=== PATIENT | male | born 2000 | race Caucasian/White ===

== ENCOUNTER 2021-11-15 11:33 | Emergency (ER) | payer OTHER, SELFPAY ==
[~2021-11-15] VITALS: Ht 188 cm; Wt 75.0 kg
[2021-11-15] MEDS ORDERED: LIDOCAINE 1% MDV 20ML VIAL SC ONE (12:25)
[2021-11-15] MEDS ORDERED: NS 1,000 ML IV ONE (13:45)
[2021-11-15 13:51] LABS: BASO # 0.1 10^3/uL (0.0-0.2); BASO % 0.5 % (0.0-1.0); EOS # 0.1 10^3/uL (0.0-0.5); EOS % 0.6 % (0.0-3.0); HEMATOCRIT 45.4 % (42.0-52.0); LYMPH # 0.8 10^3/uL (1.5-5.0); LYMPH % 7.2 % (24.0-44.0); MEAN CORPUSCULAR HEMOGLOBIN 28.4 pg (27.0-33.0); MEAN CORPUSCULAR VOLUME 85.8 fl (80.0-96.0); MONO # 0.5 10^3/uL (0.0-0.8); MONO % 4.7 % (2.0-8.0); NEUTROPHILS # 9.2 10^3/uL (1.5-8.5); NEUTROPHILS % 86.6 % (36.0-66.0); PLATELET COUNT, AUTOMATED 174 10^3/uL (150-450); RED BLOOD COUNT 5.29 10^6/uL (4.30-6.10); WHITE BLOOD COUNT 10.6 10^3/uL (4.0-10.0)
[2021-11-15 14:24] LABS: BLOOD UREA NITROGEN 19 MG/DL (7-18); CALCIUM LEVEL 9.4 MG/DL (8.5-10.1); CARBON DIOXIDE LEVEL 25 MEQ/L (21-32); CHLORIDE LEVEL 105 MEQ/L (98-107); CREATININE FOR GFR 1.07 MG/DL (0.70-1.30); FREE T4 1.15 NG/DL (0.76-1.46); GLOMERULAR FILTRATION RATE > 60.0 (>60); GLUCOSE, FASTING 103 MG/DL (70-100); POTASSIUM SERUM 4.3 MEQ/L (3.5-5.1); SODIUM LEVEL 136 MEQ/L (136-145); THYROID STIMULATING HORMONE 0.727 uIU/ML (0.358-3.740)
[2021-11-15 14:48] VITALS: BP 119/56
== END 2021-11-15 14:54 | disposition home or self-care (01) ==
LOC: M ED 11:33 → EDBD 11:33 → M ED 14:54
DX: R55 Syncope and collapse (principal); S01.81XA Laceration without foreign body of other part of head, initial encounter; R00.1 Bradycardia, unspecified; W22.8XXA Striking against or struck by other objects, initial encounter

== ENCOUNTER 2025-02-16 12:46 | Emergency (ER) | payer OTHER, SELFPAY ==
[~2025-02-16] VITALS: Ht 185.4 cm; Wt 84.5 kg
[2025-02-16 13:30] LABS: BASO # 0.1 10^3/uL (0.0-0.2); BASO % 0.8 % (0.0-1.0); EOS # 0.1 10^3/uL (0.0-0.5); EOS % 1.7 % (0.0-3.0); LYMPH # 1.1 10^3/uL (1.5-5.0); LYMPH % 17.0 % (24.0-44.0); MONO # 0.3 10^3/uL (0.0-0.8); MONO % 4.9 % (2.0-8.0); NEUTROPHILS # 4.7 10^3/uL (1.5-8.5); NEUTROPHILS % 75.3 % (36.0-66.0); PLATELET COUNT, AUTOMATED 159 10^3/uL (150-450)
[2025-02-16 14:01] LABS: CALCIUM LEVEL 9.0 MG/DL (8.5-10.1); CARBON DIOXIDE LEVEL 29 MMOL/L (20-31); CHLORIDE LEVEL 102 MMOL/L (98-107); CREATININE FOR GFR 1.07 MG/DL (0.70-1.30); GLOMERULAR FILTRATION RATE > 90.0 (>60); POTASSIUM SERUM 4.1 MMOL/L (3.5-5.1); SODIUM LEVEL 139 MMOL/L (136-145)
[2025-02-16 14:03] LABS: FREE T4 1.41 NG/DL (0.89-1.76)
[2025-02-16] MEDS: KETOROLAC 30 MG/ML 1 ML VIAL IV ONE (15:02)
[2025-02-16] MEDS ORDERED: METH-1165 PO (15:24)
[2025-02-16] MEDS ORDERED: IBUP80TA PO (15:24)
[2025-02-16 15:30] LABS: MAGNESIUM LEVEL 1.8 MG/DL (1.8-2.4)
[2025-02-16 15:45] VITALS: BP 135/67; TEMP 98.8; O2SAT 99
== END 2025-02-16 16:02 | disposition home or self-care (01) ==
LOC: EDBD 12:46 → M ED 12:46
DX: R55 Syncope and collapse (principal); M62.830 Muscle spasm of back; M51.370 Other intervertebral disc degeneration, lumbosacral region with discogenic back pain only; M25.78 Osteophyte, vertebrae; M50.022 Cervical disc disorder at C5-C6 level with myelopathy; M50.01 Cervical disc disorder with myelopathy, high cervical region; K59.00 Constipation, unspecified; Z79.1 Long term (current) use of non-steroidal anti-inflammatories (NSAID); Z79.899 Other long term (current) drug therapy
CPT/HCPCS: 70450; 72125; 72131; 80048; 83735; 84439; 84443; 85025; 93005; 93041; 94760; 96374; 99285; J1885